=== PATIENT | male | born 1945 | race Caucasian/White ===

== ENCOUNTER → 2017-12-02 | Outpatient (CLI) | payer BC, MEDICARE ==
[~2017-12-02] MED LIST: ALBU90OI INH; BUME2 PO; DIAZ5 PO; LISI20 PO; METR500 PO; OXYACE5T PO; PROM25 PO; RXOXYACE PO; SULTRISS PO
== END | disposition home or self-care (01) ==
LOC: LAB SHORT 07:26 → PLD 07:26
DX: C44.612 Basal cell carcinoma of skin of right upper limb, including shoulder (principal); C44.611 Basal cell carcinoma of skin of unspecified upper limb, including shoulder
CPT/HCPCS: 88305

== ENCOUNTER 2019-04-26 11:24 | Observation (INO) | payer BC, MEDICARE ==
[~2019-04-26] VITALS: Ht 190.5 cm; Wt 94.2 kg
[~2019-04-26 11:24] MED LIST changes: -BUME2 PO; +Bumetanide1 MG PO
[2019-04-26] MEDS ORDERED: POTA10T PO (11:39)
[2019-04-26] MEDS ORDERED: BUDE6HFA INH (11:40)
[2019-04-26] MEDS ORDERED: TIOT18 INH (11:40)
[2019-04-26] MEDS ORDERED: LEVSOD25 PO (11:41)
[2019-04-26] MEDS ORDERED: Dyazide 37.5-21 EACH PO (11:41)
[2019-04-26] MEDS ORDERED: ALBU90OI INH (11:41)
[2019-04-26 12:12] LABS: BASOPHILS ABSOLUTE AUTO 0.04 K/mm3 (0.00-0.23); BASOPHILS PERCENT AUTO 0 % (0-2); EOSINOPHILS ABSOLUTE AUTO 0.17 K/mm3 (0.00-0.68); EOSINOPHILS PERCENT AUTO 2 % (0-6); Hematocrit 39.5 % (37.0-53.0); IMMATURE GRAN ABSOLUTE AUTO 0.03 K/mm3 (0.00-0.10); IMMATURE GRAN PERCENT AUTO 0 % (0-1); LYMPHOCYTES ABSOLUTE AUTO 0.86 K/mm3 (0.84-5.20); LYMPHOCYTES PERCENT AUTO 8 % (21-46); MONOCYTES PERCENT AUTO 6 % (4-13); Mean Corpuscular HGB 30.5 pg (26.0-34.0); Mean Corpuscular HGB Conc 30.4 g/dL (31.5-36.5); Mean Corpuscular Volume 100 fL (80-100); Mean Platelet Volume 10.8 fL (9.1-12.4); NEUTROPHILS PERCENT AUTO 84 % (41-73); Platelet Count 252 K/mm3 (150-400); RDW Coefficient Variation 12.7 % (11.7-14.2); RDW Standard Deviation 47.6 fL (35.1-46.3); Red Blood Cell Count 3.94 M/mm3 (4.30-5.90)
[2019-04-26 12:34] LABS: Alanine Aminotransfer (ALT/SGP 22 U/L (12-78); Albumin, Blood 3.3 g/dL (3.4-5.0); Albumin/Globulin Ratio 0.9 (0.8-1.8); Alk Phos 70 U/L (50-136); Anion Gap 0 mmol/L (6-16); Aspartate Aminotrans (AST/SGOT 19 U/L (12-37); Bilirubin, Total 0.4 mg/dL (0.1-1.0); Blood Urea Nitrogen 33 mg/dL (8-24); Bun/Creatinine Ratio 35.8 (12.0-20.0); CO2, Blood 43 mmol/L (21-32); Calcium, Blood 9.1 mg/dL (8.5-10.1); Chloride, Blood 100 mmol/L (98-108); Creatinine, Blood 0.92 mg/dL (0.60-1.20); Globulin, Blood 3.6 g/dL (2.2-4.0); Glomerular Filtration Rate >60 (60-); Glucose, Blood 134 mg/dL (70-99); Sodium, Blood 143 mmol/L (136-145); Total Protein, Blood 6.9 g/dL (6.4-8.2)
[2019-04-26] MEDS ORDERED: ASCO500 PO (13:30)
[2019-04-26] MEDS ORDERED: Vitamin D2000 UNIT PO (13:31)
[2019-04-26] MEDS ORDERED: OMEGA-3 KRILL1 EACH PO (13:31)
[2019-04-26] MEDS ORDERED: LATA.005SO RIGHTEYE (13:32)
[2019-04-26] MEDS ORDERED: VITAMIN D35000 UNIT PO (15:55)
[2019-04-26] MEDS ORDERED: MSM1000 MG PO (15:58)
--- NOTE | 2019-04-26 16:00 | NUR ---
PT ARRIVED TO ROOM 313 VIA W/C FROM ED WITH ACCOMPANYING. SETTLED IN TO BED AND ORIENTED TO ROOM. SNACK OFFERED WELL.
--- NOTE | 2019-04-26 19:47 | NUR ---
SHIFT SUMMARY PT INDEPENDENT INTO BATHROOM. O2 ON AT 2L/M. IN AND OUT OF ROOM. ABLE TO GIVE AN ACCURATE HX. REPORT GIVEN TO ONCOMING SHIFT.
[2019-04-27 05:02] LABS: BASOPHILS ABSOLUTE AUTO 0.05 K/mm3 (0.00-0.23); BASOPHILS PERCENT AUTO 1 % (0-2); EOSINOPHILS PERCENT AUTO 2 % (0-6); Hematocrit 36.2 % (37.0-53.0); IMMATURE GRAN ABSOLUTE AUTO 0.04 K/mm3 (0.00-0.10); IMMATURE GRAN PERCENT AUTO 0 % (0-1); LYMPHOCYTES PERCENT AUTO 11 % (21-46); MONOCYTES ABSOLUTE AUTO 0.84 K/mm3 (0.16-1.47); MONOCYTES PERCENT AUTO 8 % (4-13); Mean Corpuscular HGB 30.5 pg (26.0-34.0); Mean Corpuscular HGB Conc 30.4 g/dL (31.5-36.5); Mean Corpuscular Volume 100 fL (80-100); Mean Platelet Volume 10.6 fL (9.1-12.4); NEUTROPHILS ABSOLUTE AUTO 8.27 K/mm3 (1.96-9.15); NEUTROPHILS PERCENT AUTO 79 % (41-73); Platelet Count 232 K/mm3 (150-400); RDW Coefficient Variation 12.8 % (11.7-14.2); RDW Standard Deviation 47.2 fL (35.1-46.3); Red Blood Cell Count 3.61 M/mm3 (4.30-5.90)
[2019-04-27 05:36] LABS: Anion Gap 4 mmol/L (6-16); Blood Urea Nitrogen 35 mg/dL (8-24); Bun/Creatinine Ratio 31.8 (12.0-20.0); CO2, Blood 40 mmol/L (21-32); Calcium, Blood 9.1 mg/dL (8.5-10.1); Chloride, Blood 99 mmol/L (98-108); Glomerular Filtration Rate >60 (60-); Glucose, Blood 127 mg/dL (70-99); Sodium, Blood 143 mmol/L (136-145)
--- NOTE | 2019-04-27 06:36 | NUR ---
Shift summary: Pt alert and oriented. Slept off and on. Denies pain. Ambulated independently to commode without shortness of breath. Continent of urine. Dressing changed to right LE. Pt. tolerated well. No drainage from wound. VSS. No acute changes.
--- NOTE | 2019-04-27 14:12 | NUR ---
Upon receiving a referral for spiritual care, I visited patient. 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 Patient is pleasant and is at peace with but would prefer to not go quite yet. Patient tells me about his medical issues both past and present. I listen empathically and provide a calming presence and prayer. Patient responds well and voices appreciation for the visit. I will continue to remain available to patient and family.
--- NOTE | 2019-04-27 17:26 | NUR ---
SHIFT SUMMARY PT INDEPEDENT IN ROOM. RLE LESS SWOLLEN AND RED THAN YESTERDAY. DRESSING CHANGED WITH NO REDNESS NOTED AROUND THE WOUND SITE. KEPT LE ELEVATED. NO INCREASE IN RESP DISTRESS NOTED. AT BEDSIDE IN THE AFTERNOON.
--- NOTE | 2019-04-27 18:08 | NUR ---
TOOK OVER CARE FROM ARTHUR. PT SITTING UP IN BED, DENIES NEED FOR ANYTHING AT THIS TIME. NO APPARENT SIGNS OF DISTRESS. CALL LIGHT IS IN REACH.
[2019-04-28 04:34] LABS: BASOPHILS ABSOLUTE AUTO 0.06 K/mm3 (0.00-0.23); BASOPHILS PERCENT AUTO 1 % (0-2); EOSINOPHILS ABSOLUTE AUTO 0.18 K/mm3 (0.00-0.68); EOSINOPHILS PERCENT AUTO 2 % (0-6); Hematocrit 36.7 % (37.0-53.0); Hemoglobin 11.2 g/dL (13.5-17.5); IMMATURE GRAN ABSOLUTE AUTO 0.05 K/mm3 (0.00-0.10); IMMATURE GRAN PERCENT AUTO 1 % (0-1); LYMPHOCYTES ABSOLUTE AUTO 0.82 K/mm3 (0.84-5.20); LYMPHOCYTES PERCENT AUTO 8 % (21-46); MONOCYTES ABSOLUTE AUTO 0.77 K/mm3 (0.16-1.47); MONOCYTES PERCENT AUTO 8 % (4-13); Mean Corpuscular HGB 29.7 pg (26.0-34.0); Mean Corpuscular HGB Conc 30.5 g/dL (31.5-36.5); Mean Platelet Volume 10.4 fL (9.1-12.4); NEUTROPHILS ABSOLUTE AUTO 7.83 K/mm3 (1.96-9.15); NEUTROPHILS PERCENT AUTO 81 % (41-73); Platelet Count 246 K/mm3 (150-400); RDW Coefficient Variation 12.9 % (11.7-14.2); RDW Standard Deviation 46.3 fL (35.1-46.3); Red Blood Cell Count 3.77 M/mm3 (4.30-5.90); White Blood Cell Count 9.71 K/mm3 (4.00-11.30)
[2019-04-28 04:36] LABS: Mean Corpuscular Volume 97 fL (80-100)
--- NOTE | 2019-04-28 11:34 | NUR ---
PT EXPRESSING ANXIETY RE:DISCHARGE THIS PT HAS BEEN EXPRESSING ANXIETY REGARDING DISCHARGE SINCE I ARRIVED ON SHIFT. HE HAS ALSO EXPRESSED HIS CONCERNS TO PHYSICAL THERAPY AND OCCUPATIONAL THERAPY. HE DID REFUSE TO WORK WITH PHYSICAL THERAPY FOR FEAR HE WOULD "WEAR OUT", HE STATED TO ME. HE STATES HE IS FEARFUL HE CANNOT NAVIGATE HIS STAIRS AT HOME, OR GET INTO HIS CAR IF HIS DRIVES. HE EXPRESSED HE IS FEARFUL HE WILL GO HOME ONLY TO HAVE TO BE IMMEDIATELY RE-ADMITTED.
--- NOTE | 2019-04-28 16:04 | NUR ---
SHIFT SUMMARY PT WAS VISIBLY RELIEVED AND EXPRESSED GRATITUDE WHEN I TOLD HIM THE PLAN WAS FOR HIM TO DC TOMORROW W/HOME HEALTH. HE AGREED WITH THAT PLAN. IV ANTIBIOTICS ADMINISTERED ORDERED. HE DID REFUSE TO WORK WITH PT, BUT DID WORK WITH OT. NO OTHER CHANGES OR COMPLAINTS. FOOT DRESSING CHANGED TODAY.
--- NOTE | 2019-04-29 06:48 | NUR ---
sLEPT AT INTERVALS, TOLERATED MEDS AND IV ANTIBIOTICS ORDERED. NO COMPLAINTS OF PAIN BUT NOTED SWELLING OF RLE CONTINUES, WAS ENCOURAGED TO KEEP IT ELEVATED.
[2019-04-29] MEDS ORDERED: ACET325 PO (10:14)
[2019-04-29] MEDS ORDERED: Vsl#3 Capsule1 EACH PO (10:15)
[2019-04-29] MEDS ORDERED: Silvadene20 GM TOP (10:16)
[2019-04-29] MEDS ORDERED: CEPH500 PO (10:17)
--- NOTE | 2019-04-29 12:05 | NUR ---
DISCHARGE NOTE IV DC'D WNL. MEDICATIONS FAXED TO PREFERED PHARMACY. PT PROVIDED WITH HARDCOPY AND VERBAL INSTRUCTIONS FOR DC RE: DIAGNOSES, MEDICATIONS, FOLLOW UP APPOINTMENTS, HOME HEALTH. PT AND HAD NO FURTHER QUESTIONS. PT DRESSED IN PERSONAL CLOTHING, PERSONAL POSSESSIONS GATHERED. THE MECHANICAL ENGINEERING ADVISOR USED ONE OF OUR O2 TANKS TO GET THE PT TO HIS CAR, WHERE HIS OWN O2 TANK WAS STORED FOR TRANSPORT HOME. MECHANICAL ENGINEERING ADVISOR DID ASSIST THE PT OUT VIA WHEELCHAIR.
== END 2019-04-29 12:09 | disposition home health service (06) ==
LOC: ER 11:24 → MEDS 11:25 → ENPENDDIS 04-29 10:00 → MEDS 04-29 12:09
PROVIDERS: Emergency Medicine; ADMIT Internal Medicine
DX: L03.115 Cellulitis of right lower limb (principal); I11.0 Hypertensive heart disease with heart failure; I50.32 Chronic diastolic (congestive) heart failure; E11.9 Type 2 diabetes mellitus without complications; J44.9 Chronic obstructive pulmonary disease, unspecified; J96.11 Chronic respiratory failure with hypoxia; F41.9 Anxiety disorder, unspecified; E03.9 Hypothyroidism, unspecified; Z99.81 Dependence on supplemental oxygen; Z98.890 Other specified postprocedural states; Z88.8 Allergy status to other drugs, medicaments and biological substances; Z79.899 Other long term (current) drug therapy; Z79.51 Long term (current) use of inhaled steroids; Z87.891 Personal history of nicotine dependence
CPT/HCPCS: 36415; 80048; 80053; 85025; 90471; 90714; 93971; 94640; 94760; 96365; 96366; 96367; 96372; 96376; 97161; 97166; 97530; 97535; 99285-25; G0378; J0690; J1650; J3370; J7050

== ENCOUNTER → 2020-05-29 | Outpatient (CLI) | payer BC, MEDICARE ==
[~2020-05-29] MED LIST changes: +ACET325 PO; +ASCO500 PO; +BUDE6HFA INH; +CEPH500 PO; +Dyazide 37.5-21 EACH PO; +LATA.005SO RIGHTEYE; +LEVSOD25 PO; +MSM1000 MG PO; +OMEGA-3 KRILL1 EACH PO; +POTA10T PO; +Silvadene20 GM TOP; +TIOT18 INH; +VITAMIN D35000 UNIT PO; +Vitamin D2000 UNIT PO; +Vsl#3 Capsule1 EACH PO
== END | disposition home or self-care (01) ==
LOC: LAB SHORT 14:44 → PLD 14:44
DX: D23.39 Other benign neoplasm of skin of other parts of face (principal); L57.0 Actinic keratosis; B37.2 Candidiasis of skin and nail; L72.0 Epidermal cyst
CPT/HCPCS: 88304; 88305; 88312

== ENCOUNTER 2020-07-14 19:25 | Inpatient (IN) | payer OTHER, BC, MEDICARE ==
[~2020-07-14] VITALS: Ht 190.5 cm; Wt 87.5 kg
[~2020-07-14 19:25] MED LIST changes: -BUDE6HFA INH; -DIAZ5 PO; -Dyazide 37.5-21 EACH PO; -LATA.005SO RIGHTEYE; -LEVSOD25 PO
[2020-07-14 19:57] LABS: BASOPHILS ABSOLUTE AUTO 0.06 K/mm3 (0.00-0.23); BASOPHILS PERCENT AUTO 0 % (0-2); EOSINOPHILS ABSOLUTE AUTO 0.12 K/mm3 (0.00-0.68); EOSINOPHILS PERCENT AUTO 1 % (0-6); Hematocrit 40.7 % (37.0-53.0); Hemoglobin 11.8 g/dL (13.5-17.5); IMMATURE GRAN ABSOLUTE AUTO 0.19 K/mm3 (0.00-0.10); IMMATURE GRAN PERCENT AUTO 1 % (0-1); LYMPHOCYTES ABSOLUTE AUTO 1.34 K/mm3 (0.84-5.20); LYMPHOCYTES PERCENT AUTO 10 % (21-46); MONOCYTES PERCENT AUTO 4 % (4-13); Mean Corpuscular HGB 29.9 pg (26.0-34.0); Mean Corpuscular Volume 103 fL (80-100); Mean Platelet Volume 10.7 fL (9.1-12.4); NEUTROPHILS ABSOLUTE AUTO 11.44 K/mm3 (1.96-9.15); NEUTROPHILS PERCENT AUTO 83 % (41-73); Platelet Count 337 K/mm3 (150-400); RDW Coefficient Variation 12.7 % (11.7-14.2); RDW Standard Deviation 48.2 fL (35.1-46.3); Red Blood Cell Count 3.95 M/mm3 (4.30-5.90); White Blood Cell Count 13.75 K/mm3 (4.00-11.30)
[2020-07-14] MEDS ORDERED: SYMBICORT 160-4.6 GM INH (20:09)
[2020-07-14] MEDS ORDERED: LATA.005SO RIGHTEYE (20:10)
[2020-07-14] MEDS ORDERED: DIAZ5 PO (20:10)
[2020-07-14] MEDS ORDERED: LEVSOD25 PO (20:11)
[2020-07-14] MEDS ORDERED: ALBU90OI INH (20:11)
[2020-07-14] MEDS ORDERED: Dyazide 37.5-21 EACH PO (20:13)
[2020-07-14 20:14] LABS: International Normalized Ratio 1.13
[2020-07-14] MEDS ORDERED: INCRUSE ELLIPTA 62.5 INH (20:17)
[2020-07-14 20:35] LABS: PO2 Arterial 279 mmHg (80-100); pH Blood Arterial 7.41 (7.35-7.45)
[2020-07-14 20:36] LABS: PCO2 Arterial 70.8 mmHg (35-45)
[2020-07-14 20:52] LABS: Influenza A, PCR Negative (NEGATIVE); Influenza B, PCR Negative (NEGATIVE); Resp Syncytial Virus, PCR Negative (NEGATIVE); SARS-Cov-2 (COVID-19) PCR, MMC Negative (NEGATIVE)
[2020-07-14 21:17] LABS: Alanine Aminotransfer (ALT/SGP 28 U/L (12-78); Albumin, Blood 3.6 g/dL (3.4-5.0); Albumin/Globulin Ratio 0.9 (0.8-1.8); Alk Phos 61 U/L (50-136); Anion Gap 8 mmol/L (6-16); Aspartate Aminotrans (AST/SGOT 27 U/L (12-37); Bilirubin, Total 0.4 mg/dL (0.1-1.0); Blood Urea Nitrogen 62 mg/dL (8-24); CO2, Blood 37 mmol/L (21-32); Calcium, Blood 9.2 mg/dL (8.5-10.1); Chloride, Blood 92 mmol/L (98-108); Creatinine, Blood 1.17 mg/dL (0.60-1.20); Globulin, Blood 3.9 g/dL (2.2-4.0); Glomerular Filtration Rate >60 (60-); Glucose, Blood 205 mg/dL (70-99); Potassium, Blood 5.2 mmol/L (3.5-5.5); Sodium, Blood 137 mmol/L (136-145); Total Protein, Blood 7.5 g/dL (6.4-8.2); Troponin I <0.015 ng/mL (0.000-0.040)
[2020-07-14 22:27] LABS: Base Excess Venous 24.4 mmol/L; PCO2 Venous 80.2 mmHg (38-42)
--- NOTE | 2020-07-15 | NUR ---
PT TO ICU ROOM 4 VIA KIM WITH ED RN AND RT @ 2135, PT INTUBATED AND SEDATED, SEE FLOWSHEET FOR PROPOFOL TITRATIONS. 8.0 ETT 26 @ THE TEETH, VENT SET TO AC 14/550/5/30%, MONITOR SHOWS TACHYCARDIA WIHT HR 100-120'S, BP STABLE, 3-4+ EDEMA NOTED TO BLE. SKIN IS VERY FRAGILE, SKIN TEAR NOTED TO R ELBOW, SEE PHOTOS IN PTS CHART. TEMP PROBE FOLE IN PLACE DRAINING CLEAR YELLOW URINE. OG IN PLACE, CLAMPED. DR MOORE TO ROOM, SEE NEW ORDERS FOR FENTANYL. TO PTS ROOM, REPORTS SHE NOTICED SWELLING TO PTS FEET EARLY IN THE AM OF 07/14, SPO2 AT THAT TIME WAS 90%, WHICH IS LOW FOR PT, PO BUMEX WAS ADMINISTERED AT THAT TIME. REPORTS PT HAD POOR APPETITE AND PO INTAKE WHICH IS UNUSUAL FOR PT, IN THE EVENING PT BECAME "LISTLESS" CHECKED SPO2 AND IT SHOWED 53%, EMS WAS CALLED AT THAT TIME. REPORTS PT WEARS 2L PER NC AT ALL TIMES AND IS TYPICALLY INDEPENDENT WITH ADL'S. STS PT DOES NOT HAVE AN ADVANCED DIRECTION AND IS UNSURE ABOUT POLST. PT SEES DR MCDOWELL FOR PULMONOLGY AND DR WELLS FOR PRIMARY CARE, STS PT HAD A RECENT ADMISSION TO [facility] R/T PTS BLE SWELLING, BUT STS PT WAS NOT DIAGNOSED WITH CHF AT THAT TIME. DISCUSSED PALLIATIVE CARE WITH SPOUSE AND IS INTERESTED IN SPEAKING WITH PALLIATIVE CARE TEAM TO LEARN MORE ABOUT ADVANCE CARE PLANNING AND HOME MANAGMENT OF CHRONIC ILLNESSNESS, PC CONSULT ORDERED.
[2020-07-15 02:16] LABS: BASOPHILS ABSOLUTE AUTO 0.02 K/mm3 (0.00-0.23); BASOPHILS PERCENT AUTO 0 % (0-2); EOSINOPHILS PERCENT AUTO 0 % (0-6); Hematocrit 38.5 % (37.0-53.0); Hemoglobin 11.3 g/dL (13.5-17.5); IMMATURE GRAN ABSOLUTE AUTO 0.05 K/mm3 (0.00-0.10); IMMATURE GRAN PERCENT AUTO 0 % (0-1); LYMPHOCYTES ABSOLUTE AUTO 0.31 K/mm3 (0.84-5.20); LYMPHOCYTES PERCENT AUTO 2 % (21-46); MONOCYTES ABSOLUTE AUTO 0.37 K/mm3 (0.16-1.47); MONOCYTES PERCENT AUTO 3 % (4-13); Mean Corpuscular HGB 29.7 pg (26.0-34.0); Mean Corpuscular HGB Conc 29.4 g/dL (31.5-36.5); Mean Corpuscular Volume 101 fL (80-100); Mean Platelet Volume 10.8 fL (9.1-12.4); NEUTROPHILS PERCENT AUTO 95 % (41-73); Platelet Count 289 K/mm3 (150-400); RDW Coefficient Variation 12.7 % (11.7-14.2); RDW Standard Deviation 47.5 fL (35.1-46.3); Red Blood Cell Count 3.81 M/mm3 (4.30-5.90); White Blood Cell Count 14.05 K/mm3 (4.00-11.30)
[2020-07-15 02:31] LABS: Anion Gap 8 mmol/L (6-16); Blood Urea Nitrogen 62 mg/dL (8-24); Bun/Creatinine Ratio 50.8 (12.0-20.0); CO2, Blood 44 mmol/L (21-32); Calcium, Blood 9.4 mg/dL (8.5-10.1); Chloride, Blood 90 mmol/L (98-108); Creatinine, Blood 1.22 mg/dL (0.60-1.20); Glomerular Filtration Rate >60 (60-); Glucose, Blood 191 mg/dL (70-99); Sodium, Blood 142 mmol/L (136-145)
--- NOTE | 2020-07-15 07:17 | NUR ---
SHIFT SUMMARY PT REMAINS INTUBATED AND SEDATED, VENT SET TO AC 14/550/5/30%, PROPOFOL INFUSING @ 40mcg/kg/min. PT GRIMACES WITH NURSING CARE AND WITHDRAWS FROM PAINFUL STIMULI BUT DOES NOT RESPOND TO VERBAL STIMULI. MONITOR SHOWS AFLUTTER VS AFIB, HR 90'S-110, BP STABLE. OG IN PLACE AND CLAMPED. CAMERON IN PLACE WITH GOOD URINE OUTPUT, APPROX 2L THIS SHIFT. REPORT GIVEN TO SAMANTHA SPRING.
--- NOTE | 2020-07-15 08:29 | NUR ---
PT INTUBATED AND SEDATED WITH PROPOFOL. PT WILL GRIMACE TO PAIN AND STIFFENS BODY WITH CARE OR REPOSITIONING. ECHO BEING DONE NOW. NO SIGN OF DISTRESS.
[2020-07-15] MEDS ORDERED: HYOS.125 PO (08:55)
[2020-07-15] MEDS ORDERED: MINO50 PO (08:57)
--- NOTE | 2020-07-15 11:39 | NUR ---
Echocardiogram completed.
--- NOTE | 2020-07-15 17:24 | NUR ---
Spiritual care note: Per admit trigger, I was tasked to provide pt/family with ACP information. No family present and pt on vent and sedated. I left Advanced Directive packet in room and advised RN that I will remain available.
--- NOTE | 2020-07-15 18:40 | NUR ---
SUMMARY PT INTUBATED AND LIGHTLY SEDATED WITH PROPOFOL. PT WILL REST WITH EYE'S CLOSED BUT OPENS THEM TO VOICE. NODS HEAD TO QUESTIONS. WILL MOVE ALL EXTREMITIES. CAME IN TO SEE PT FOR AWHILE TODAY. NO OTHER CHANGES THIS SHIFT.
--- NOTE | 2020-07-15 21:00 | NUR ---
ASSUMPTION OF CARE PT INTUBATED AND SEDATED, AROUSES TO VERBAL STIMULI, FOLLOWS SOME COMMANDS, VENT SET TO AC 14/550/5/25%. MONITOR SHOWS AFIB/AFLUTTER WITH HR 90'S-110, BP STABLE. EDEMA TO BLE IMPROVED. PROPOFOL INFUSING, SEE FLOWSHEET FOR TITRATIONS. OG IN PLACE, CLAMPED. CAMERON IN PLACE DRAINING CLEAR YELLOW URINE. PT VERY WEAK, JOHNSON, MILD TREMORS NOTED.
[2020-07-16 04:31] LABS: BASOPHILS ABSOLUTE AUTO 0.02 K/mm3 (0.00-0.23); BASOPHILS PERCENT AUTO 0 % (0-2); EOSINOPHILS ABSOLUTE AUTO 0.01 K/mm3 (0.00-0.68); EOSINOPHILS PERCENT AUTO 0 % (0-6); Hematocrit 28.3 % (37.0-53.0); Hemoglobin 8.7 g/dL (13.5-17.5); IMMATURE GRAN ABSOLUTE AUTO 0.06 K/mm3 (0.00-0.10); IMMATURE GRAN PERCENT AUTO 1 % (0-1); LYMPHOCYTES ABSOLUTE AUTO 0.82 K/mm3 (0.84-5.20); LYMPHOCYTES PERCENT AUTO 6 % (21-46); MONOCYTES ABSOLUTE AUTO 0.91 K/mm3 (0.16-1.47); MONOCYTES PERCENT AUTO 7 % (4-13); Mean Corpuscular HGB 29.4 pg (26.0-34.0); Mean Corpuscular HGB Conc 30.7 g/dL (31.5-36.5); NEUTROPHILS ABSOLUTE AUTO 11.27 K/mm3 (1.96-9.15); NEUTROPHILS PERCENT AUTO 86 % (41-73); Platelet Count 272 K/mm3 (150-400); RDW Coefficient Variation 13.7 % (11.7-14.2); RDW Standard Deviation 48.2 fL (35.1-46.3); Red Blood Cell Count 2.96 M/mm3 (4.30-5.90); White Blood Cell Count 13.09 K/mm3 (4.00-11.30)
[2020-07-16 04:48] LABS: Mean Corpuscular Volume 96 fL (80-100)
[2020-07-16 04:49] LABS: Bun/Creatinine Ratio 47.3 (12.0-20.0); Calcium, Blood 7.8 mg/dL (8.5-10.1); Creatinine, Blood 1.5 mg/dL (0.60-1.20); Magnesium, Blood 2.1 mg/dL (1.6-2.4); Phosphorus, Blood 1.9 mg/dL (2.5-4.9); Potassium, Blood 2.6 mmol/L (3.5-5.5)
[2020-07-16 05:55] LABS: pH Blood Arterial 7.62 (7.35-7.45)
[2020-07-16 06:01] LABS: BASOPHILS ABSOLUTE AUTO 0.04 K/mm3 (0.00-0.23); BASOPHILS PERCENT AUTO 0 % (0-2); EOSINOPHILS ABSOLUTE AUTO 0.02 K/mm3 (0.00-0.68); EOSINOPHILS PERCENT AUTO 0 % (0-6); Hematocrit 32.9 % (37.0-53.0); Hemoglobin 10.3 g/dL (13.5-17.5); IMMATURE GRAN ABSOLUTE AUTO 0.05 K/mm3 (0.00-0.10); IMMATURE GRAN PERCENT AUTO 0 % (0-1); LYMPHOCYTES ABSOLUTE AUTO 1.02 K/mm3 (0.84-5.20); LYMPHOCYTES PERCENT AUTO 7 % (21-46); MONOCYTES ABSOLUTE AUTO 0.96 K/mm3 (0.16-1.47); MONOCYTES PERCENT AUTO 6 % (4-13); Mean Corpuscular HGB 29.9 pg (26.0-34.0); Mean Corpuscular HGB Conc 31.3 g/dL (31.5-36.5); Mean Corpuscular Volume 95 fL (80-100); Mean Platelet Volume 10.5 fL (9.1-12.4); NEUTROPHILS ABSOLUTE AUTO 13.11 K/mm3 (1.96-9.15); NEUTROPHILS PERCENT AUTO 86 % (41-73); Platelet Count 277 K/mm3 (150-400); RDW Coefficient Variation 13.9 % (11.7-14.2); RDW Standard Deviation 48.4 fL (35.1-46.3); Red Blood Cell Count 3.45 M/mm3 (4.30-5.90)
[2020-07-16 06:14] LABS: Calcium, Blood 8.9 mg/dL (8.5-10.1); Creatinine, Blood 1.63 mg/dL (0.60-1.20); Potassium, Blood 2.9 mmol/L (3.5-5.5)
--- NOTE | 2020-07-16 07:31 | NUR ---
Receieved report from Catie SPRING. Patient awake in bed and is able to knod yes or no to questions and follows simple commands. He is intubated and lightly sedated. Patient has 8.0 ET and 26cm at lips with vent settings AC 14, TV 450, FiO2 30%, PEEP 5.0 and sats 94%. He has 18ga RLFA dressing intact and site WNL and is infusing NS TKO and Propofol 10 mcg/kg/min, he also has 20 ga RAC infusing potassium rider at 50ml/hr. He has OG in place and is currently clamped. Patient has 16Fr. temp tomas draing to gravity yellow urine and temp of 99.9. Patient MAEW but weak.
--- NOTE | 2020-07-16 07:35 | NUR ---
SHIFT SUMMARY NO ACUTE CHANGES THIS SHIFT, PT REMAINS INTUBATED AND SEDATED, TIDAL VOLUMES CHANGED THIS AM PER DR HUA FOLLOWING ABG pH RESULT OF 7.62, VENT SET TO 14/450/5/35%. PT FAILED SBT THIS AM R/T LOW TV, SEE RT ASSESSMENT. PT CONVERTED TO SINUS RHYTHYM WITH PAC'S THIS SHIFT. CAMERON IN PLACE WITH GOOD URINE OUTPUT. MORNING LABS SHOWED LOW POTASSIUM AND PHOSPHOROUS, RESULTS CALLED TO DR HUA, SEE NEW ORDERS. REPORT GIVEN TO GUALBERTO SPRING.
--- NOTE | 2020-07-16 09:30 | NUR ---
Patient awake and communicates with knods and hand jestures. No vent or gtt setting changes, sats 95%, HR 80's currently.Oral care done and gave patient a shave and warm wash cloth to face and hands. Placed new IV in LFA 18ga. Patient denies any pain currently and knods does not want ET out.
--- NOTE | 2020-07-16 11:30 | NUR ---
Dr Thompson by around 0930 and placed on spontaneous mode with PS 10 and tolerated for about an hour and then reduced to PS 8 and lasted until 1130 and then placed back on AC mode and wants to start back on Tube Feed. He remains awake and communicable. Increased sedation to 20 mcg/kg/min Propofol.
--- NOTE | 2020-07-16 13:50 | NUR ---
Patient resting comfortably. called and gave her update and she will be in by 1400. He remains on original settings of AC mode, and sats 94%. Propofol remaisn at 20 mcg/kg/min. Garcia intact and patent and has clear yellow urine adequate amounts and LE edema looks reduced from earlier.VSS, See EMR.
--- NOTE | 2020-07-16 15:30 | NUR ---
Patients in room at bedside. IV in LFA infiltrated and is weaping, IV was removed. Patient continues on 20 mcg/kg/min of Propofol and NS TKO in RLFA. VSS, See EMR. He still trys to mouth words and is unable to communicate one thing and between several people. Potassium 2.7 and will address with Dr Thompson.
--- NOTE | 2020-07-16 18:00 | NUR ---
Pulled peripheral IV's after placing PICC in GADIEL. Dr Thompson ordered 60 meq Potassium. Repositioned and cath care and oral care. remains at bedside. Patient had coughing fit and bagged for a couple minutes and restarted on vent after that. RT messed with vent, no secretions with suctioning. 1st bag of potassium started and all lines changed to PICC Line. Left arm infiltration site still weeping serous fluid. NS TKO, Propofol 20 mcg/kg/min. Gave tylenol for 101.5 temp and placed fan on patient and temp. 100.4.
--- NOTE | 2020-07-16 19:00 | NUR ---
ASSUMED CARE ASSUMED CARE OF PATIENT. REMAINS INTUBATED- AC 14, TV 450, PEEP 5, FIO2 30%. RR 20s. SEDATED WITH PROPOFOL @ 20MCG/KG/MIN. OPENS EYES SPONANEOUSLY. NODS HEAD YES/NO APPROPRIATELY. FOLLOWS SIMPLE COMMANDS. DENIES C/O PAIN OR DISCOMFORT. BILATERAL SOFT WRIST RESTRAINTS IN PLACE TO PROTECT TUBES/LINES. MONITOR SHOWS AFIB, RATE 80-100s. BP STABLE. TEMP 100.2F VIA CAMERON TEMP PROBE. OG WITH PIVOT 1.5 AT 20CC/HR (GOAL RATE IS 40CC/HR). 30CC H20 FLUSH Q4H. CAMERON PATENT AND DRAINING YELLOW URINE. L ARM EDEMA NOTED FROM IV INFILTRATE- WEEPING SANGUINOUS FLUID. SEE SHIFT ASSESSMENT FOR FULL ASSESSMENT.
--- NOTE | 2020-07-16 19:04 | NUR ---
Spiritual care note: Provided prayer at bedside per 's request. Bennie was awake and trying to communicate. He denied pain/fear. Encouraged rest for both. I will remain available.
[2020-07-17 05:23] LABS: Base Excess Venous 27.7 mmol/L; Bicarbonate Venous 49.3 mmol/L (24.0-30.0); PCO2 Venous 61.6 mmHg (38-42); PO2 Venous 44.8 mmHg (38-42); pH Blood Venous 7.52 (7.34-7.37)
[2020-07-17 05:29] LABS: BASOPHILS ABSOLUTE AUTO 0.02 K/mm3 (0.00-0.23); BASOPHILS PERCENT AUTO 0 % (0-2); EOSINOPHILS PERCENT AUTO 1 % (0-6); Hematocrit 31.8 % (37.0-53.0); Hemoglobin 9.7 g/dL (13.5-17.5); IMMATURE GRAN ABSOLUTE AUTO 0.08 K/mm3 (0.00-0.10); IMMATURE GRAN PERCENT AUTO 1 % (0-1); LYMPHOCYTES ABSOLUTE AUTO 0.88 K/mm3 (0.84-5.20); LYMPHOCYTES PERCENT AUTO 6 % (21-46); MONOCYTES PERCENT AUTO 5 % (4-13); Mean Corpuscular HGB 29.7 pg (26.0-34.0); Mean Corpuscular HGB Conc 30.5 g/dL (31.5-36.5); Mean Corpuscular Volume 97 fL (80-100); Mean Platelet Volume 10.7 fL (9.1-12.4); NEUTROPHILS PERCENT AUTO 88 % (41-73); Platelet Count 256 K/mm3 (150-400); RDW Standard Deviation 49.5 fL (35.1-46.3); Red Blood Cell Count 3.27 M/mm3 (4.30-5.90); White Blood Cell Count 14.18 K/mm3 (4.00-11.30)
[2020-07-17 06:00] LABS: Blood Urea Nitrogen 70 mg/dL (8-24); Bun/Creatinine Ratio 46.7 (12.0-20.0); Calcium, Blood 8.5 mg/dL (8.5-10.1); Chloride, Blood 93 mmol/L (98-108); Glomerular Filtration Rate 48 (60-); Glucose, Blood 228 mg/dL (70-99); Magnesium, Blood 2.5 mg/dL (1.6-2.4); Phosphorus, Blood 4.3 mg/dL (2.5-4.9); Potassium, Blood 2.9 mmol/L (3.5-5.5); Sodium, Blood 144 mmol/L (136-145)
[2020-07-17 06:17] LABS: Anion Gap Unable to Calculate mmol/L (6-16)
[2020-07-17 06:18] LABS: CO2, Blood >45 mmol/L (21-32)
--- NOTE | 2020-07-17 06:22 | NUR ---
SHIFT SUMMARY NO ACUTE CHANGES DURING NOC. REMAINS INTUBATED- AC 14, TV 450, PEEP 5, FIO2 30% T/O MOST OF NOC. SWITCHED TO SPONTANEOUS PS 8 AT APPROXIMATELY 0430 FOR SBT. PT NOW REMAINS ON PS AND IS TOLERATING WELL. PROPOFOL OFF AT 0405 AND RESTARTED AT 15MCG/KG/MIN AT 0545 D/T MILD ANXIETY AND RESTLESSNESS. CONTINUES TO FOLLOW SIMPLE COMMANDS AND NOD HEAD YES/NO APPROPRIATELY. ATTEMPTS TO MOUTH WORDS, POINT AT THINGS, AND WRITE ON PAPER WITHOUT SUCCESS. BILATERAL SOFT WRIST RESTRAINTS REMAIN IN PLACE. LUE CONTINUES TO WEEP. BP STABLE T/O NOC. AFIB/FLUTTER, RATE 70s-110s. TMAX 100.2F. OG WITH TUBE FEEDING PIVOT 1.5 AT GOAL RATE OF 40CC/HR. OG RESIDUAL 0-10CC. CAMERON PATENT AND DRAINING DARK YELLOWISH-GREEN URINE. GADIEL PICC PATENT. WILL REPORT TO ONCOMING RN WHEN AVAILABLE.
--- NOTE | 2020-07-17 07:15 | NUR ---
Received report in room from Elizabeth SPRING. Patient resting on right side. He is intubated and lightly sedated. He has 8.0 ET, 26 cm at lips with vent settings spon, PS 8, FiO2 30%, PEEP 5.0 and sats 95%. He awakens to verbal stimuli and knods yes and no to simple questions and is mouthing and use hands and are unable to figure out communication. We tried pen and paper and still to weak and poor fine motor, also tried picture board and he just holds it and does nothing else. He has OG in place with Pivot 1.5 at goal rate 40ml/hr and 30 ml water flushes q4. He has 16Fr temp tomas draining to gravity yellow urine and temp of 100.0. He has PICC Line to GADIEL dressing intact and site WNL's and is infusing Propofol 15 mcg/kg/min NS TKO and potassium rider 1 of 3. He moves UE and minimal LE's.
--- NOTE | 2020-07-17 09:30 | NUR ---
Patient resting and awakens easily. Repositioned. Potassium riders continue. VSS, See EMR. He remains on same spon. mode and sats >90%. No changes to gtt's.
[2020-07-17 10:50] LABS: PCO2 Arterial 65.1 mmHg (35-45); PO2 Arterial 60.6 mmHg (80-100); pH Blood Arterial 7.49 (7.35-7.45)
--- NOTE | 2020-07-17 11:19 | NUR ---
Patient extubated to 6L O2 via NC and reduced to his home O2 of 2L via NC in mouth with sats 98%. He is coughing up thick secretions that we are suctioning. Removed restraints at 1100 at extubation. Repositioned and elevated extremities. VSS, See EMR.
--- NOTE | 2020-07-17 13:30 | NUR ---
Patient unable to clear secretions after contiuous suctioning thick perez secretions. He was getting tired and after increasing FiO2 to 75% and Dr Thompson making adjustments she decided to re-intubate at 1300. We used etomidate 20 mg and replaced with 8.0 ET and 26 cm at lips with settings AC 14, TV 450, FiO2 100% and Peep 5.0 and sats 100%. Restarted Propofol at 20 mcg/kg/min and re-applied restraints bilateral soft wrists. Dr Thompson called and gave update. Restarted Pivot 1.5 at original order when stopped.
--- NOTE | 2020-07-17 15:30 | NUR ---
Have weened FiO2 down to 40% and patient remains upper 90%'s. arrived at 1400 and is at bedside. Potassium went up to 3.9 after todays riders. VSS, See EMR. He is resting better and is calmer with ET in place. CBG 187, no coverage needed.
--- NOTE | 2020-07-17 17:35 | NUR ---
remains at bedside. Had RT come and levage ET as secretions were too thick. Current vent settings AC 14, TV 450, FiO2 35%, PEEP 5.0 and sats 97%. He has 1700ml urine out and edmea mostly on left foot that is noticable. He has been rest with little disturbance other than just finished oral care. PICC Line intact and infusing Propofol at 20 mcg/kg/min, NS TKO. He awakens to verbal stimuli and still interactive to simple commands. TF at Pivot 1.5 at 40 ml/hr and 30 ml/q4.
--- NOTE | 2020-07-17 19:00 | NUR ---
ASSUMED CARE ASSUMED CARE OF PATIENT. INTUBATED- AC 14, TV 450, PEEP 5, FIO2 35%. SEDATED WITH PROPOFOL AT 20MCG/KG/MIN. OPENS EYES TO VERBAL STIMULI. FOLLOWS SIMPLE COMMANDS AND NODS HEAD YES/NO SLIGHTLY TO QUESTIONS. BILATERAL SOFT WRIST RESTRAINTS IN PLACE TO PROTECT TUBES AND LINES. MONITOR SHOWS AFIB, RATE 60S-70s. SBP 90s. TEMP 100.8F PER CAMERON TEMP PROBE. OG WITH PIVOT 1.5 AT GOAL RATE OF 40CC/HR. CAMERON PATENT AND DRAINING DARK YELLOW URINE. GADIEL PICC PATENT. SEE SHIFT ASSESSMENT FOR FULL ASSESSMENT.
--- NOTE | 2020-07-17 21:00 | NUR ---
HYPOTENSION DISCUSSED CONTINUED HYPOTENSION (SBP 80-90s AND MAP 50s-60s) WITH DR. HUA- NEW ORDER RECEIVED FOR LEVOPHED TO KEEP MAP >65.
[2020-07-18 05:19] LABS: PCO2 Arterial 58.9 mmHg (35-45); pH Blood Arterial 7.52 (7.35-7.45)
[2020-07-18 05:38] LABS: BASOPHILS ABSOLUTE AUTO 0.04 K/mm3 (0.00-0.23); BASOPHILS PERCENT AUTO 0 % (0-2); EOSINOPHILS ABSOLUTE AUTO 0.23 K/mm3 (0.00-0.68); EOSINOPHILS PERCENT AUTO 1 % (0-6); Hematocrit 31.7 % (37.0-53.0); Hemoglobin 9.5 g/dL (13.5-17.5); IMMATURE GRAN ABSOLUTE AUTO 0.09 K/mm3 (0.00-0.10); IMMATURE GRAN PERCENT AUTO 1 % (0-1); LYMPHOCYTES ABSOLUTE AUTO 0.66 K/mm3 (0.84-5.20); LYMPHOCYTES PERCENT AUTO 4 % (21-46); MONOCYTES PERCENT AUTO 4 % (4-13); Mean Corpuscular HGB 29.6 pg (26.0-34.0); Mean Corpuscular Volume 99 fL (80-100); Mean Platelet Volume 10.5 fL (9.1-12.4); NEUTROPHILS ABSOLUTE AUTO 14.47 K/mm3 (1.96-9.15); NEUTROPHILS PERCENT AUTO 89 % (41-73); Platelet Count 263 K/mm3 (150-400); RDW Coefficient Variation 13.9 % (11.7-14.2); RDW Standard Deviation 50.5 fL (35.1-46.3); Red Blood Cell Count 3.21 M/mm3 (4.30-5.90); White Blood Cell Count 16.19 K/mm3 (4.00-11.30)
[2020-07-18 05:58] LABS: Blood Urea Nitrogen 68 mg/dL (8-24); Bun/Creatinine Ratio 50.7 (12.0-20.0); Calcium, Blood 8.3 mg/dL (8.5-10.1); Chloride, Blood 100 mmol/L (98-108); Creatinine, Blood 1.34 mg/dL (0.60-1.20); Glomerular Filtration Rate 55 (60-); Glucose, Blood 277 mg/dL (70-99); Phosphorus, Blood 3.2 mg/dL (2.5-4.9); Sodium, Blood 149 mmol/L (136-145)
[2020-07-18 06:00] LABS: Anion Gap Unable to Calculate mmol/L (6-16); CO2, Blood >45 mmol/L (21-32)
--- NOTE | 2020-07-18 06:23 | NUR ---
SHIFT SUMMARY NO ACUTE CHANGES. REMAINS INTUBATED WITH SETTINGS AC 14, TV 450, PEEP 5, FIO2 35%. RR 14-20s. SEDATED WITH PROPOFOL BETWEEN 20-30MCG/KG/MIN- NOW INFUSING @ 30MCG/KG/MIN. OPENS EYES TO VERBAL STIMULI AND FOLLOWS SIMPLE COMMANDS. OCCASIONALLY NODS HEAD YES/NO TO QUESTIONS. BILATERAL SOFT WRIST RESTRAINTS REMAIN ON TO PTOTECT TUBES/LINES. MONITOR SHOWS AFIB, RATE 60-70s. OCCASIONALLY SHOWS WHAT LOOKS LIKE A WANDERING ATRIAL PACEMAKER. LEVOPHED STARTED AT APPROXIMATELY 2130- NOW AT 3MCG/MIN TO MAINTAIN MAP >65. OG WITH PIVOT 1.5 AT GOAL RATE OF 40CC/HR. OG RESIDUAL <10CC. CAMERON PATENT AND DRAINING DARK GREENISH-YELLOW URINE. GADIEL PICC LINE PATENT AND DRSG D/I. WILL REPORT TO ONCOMING RN WHEN AVAILABLE.
--- NOTE | 2020-07-18 07:02 | NUR ---
ASSUMED CARE: RECEIVED BEDSIDE REPORT FROM NOC RN. PT APPEARS TO BE RESTING PEACEFULLY WITH NO ACUTE DISTRESS NOTED. WILL CONTINUE TO MONIOTOR AND ASSESS FURTHER.
--- NOTE | 2020-07-18 18:32 | NUR ---
SHIFT SUMMARY: PT HAS REMAINED ON LEVOPHED T/O THE DAY DECREASED DOWN TO 2MCG/MIN AND DECREASED PROPOFOL DOWN TO 25 MCG/KG/MIN. BP HAS BEEN TOLLERATING AND PT IS MORE RESPONSIVE. THE SIGNIFICANT OTHER CAME IN AND STAIED WITH THE PT DURING VISITING HOURS [id number] PLAYING MUSIC FOR THE PT AND HOLDING HIS HAND. PT HAS BEEN ABLE TO ANSWER YES AND NO QUESTIONS WITH A SHAKE OR NODD OF THE HEAD. PT DENIES PAIN AND APPEARS TO REMAIN CALM WITH MUSIC PLAYING. WILL CONTINUE TO MONIOTOR AND REPORT TO ONCOMING RN.
--- NOTE | 2020-07-18 19:00 | NUR ---
ASSUMED CARE ASSUMED CARE OF PATIENT. REMAINS INTUBATED- AC 10, TV 450, PEEP 5, FIO2 40%. RR 18-20. SEDATED WITH PROPOFOL AT 25MCG/KG/MIN. OPENS EYES TO VERBAL STIMULI. MOVES ALL EXTREMITIES WEAKLY TO COMMAND. FOLLOWS SIMPLE DIRECTIONS AND IS ABLE TO NOD HEAD YES/NO APPROPRIATELY. BILATERAL SOFT WRIST RESTRAINTS IN PLACE TO PREVENT SELF-EXTUBATION. DENIES C/O PAIN. MONITOR SHOWS AFIB, RATE 70s. BP STABLE WITH LEVOPHED AT 2MCG/MIN. TEMP 100.6F PER CAMERON TEMP PROBE. OG WITH PIVOT 1.5 AT GOAL RATE OF 40CC/HR. 200CC H20 FLUSH Q4H. CAMERON PATENT AND DRAINING DARK YELLOW URINE. GADIEL PICC PATENT, DRSG D/I. SEE SHIFT ASSESSMENT FOR FULL ASSESSMENT.
[2020-07-19 05:36] LABS: BASOPHILS ABSOLUTE AUTO 0.06 K/mm3 (0.00-0.23); BASOPHILS PERCENT AUTO 0 % (0-2); EOSINOPHILS ABSOLUTE AUTO 0.45 K/mm3 (0.00-0.68); EOSINOPHILS PERCENT AUTO 3 % (0-6); Hematocrit 30.8 % (37.0-53.0); Hemoglobin 8.9 g/dL (13.5-17.5); IMMATURE GRAN ABSOLUTE AUTO 0.09 K/mm3 (0.00-0.10); IMMATURE GRAN PERCENT AUTO 1 % (0-1); LYMPHOCYTES ABSOLUTE AUTO 0.59 K/mm3 (0.84-5.20); LYMPHOCYTES PERCENT AUTO 3 % (21-46); MONOCYTES ABSOLUTE AUTO 0.92 K/mm3 (0.16-1.47); MONOCYTES PERCENT AUTO 5 % (4-13); Mean Corpuscular HGB 29.3 pg (26.0-34.0); Mean Corpuscular HGB Conc 28.9 g/dL (31.5-36.5); Mean Corpuscular Volume 101 fL (80-100); Mean Platelet Volume 11.2 fL (9.1-12.4); NEUTROPHILS ABSOLUTE AUTO 15.08 K/mm3 (1.96-9.15); NEUTROPHILS PERCENT AUTO 88 % (41-73); Platelet Count 272 K/mm3 (150-400); RDW Coefficient Variation 14.1 % (11.7-14.2); RDW Standard Deviation 52.3 fL (35.1-46.3); Red Blood Cell Count 3.04 M/mm3 (4.30-5.90); White Blood Cell Count 17.19 K/mm3 (4.00-11.30)
[2020-07-19 05:45] LABS: Blood Urea Nitrogen 63 mg/dL (8-24); Bun/Creatinine Ratio 48.8 (12.0-20.0); Calcium, Blood 8.3 mg/dL (8.5-10.1); Chloride, Blood 103 mmol/L (98-108); Creatinine, Blood 1.29 mg/dL (0.60-1.20); Glomerular Filtration Rate 57 (60-); Glucose, Blood 266 mg/dL (70-99); Magnesium, Blood 2.8 mg/dL (1.6-2.4); Phosphorus, Blood 2.8 mg/dL (2.5-4.9); Potassium, Blood 3.4 mmol/L (3.5-5.5); Sodium, Blood 149 mmol/L (136-145)
[2020-07-19 05:52] LABS: Anion Gap Unable to Calculate mmol/L (6-16)
[2020-07-19 05:54] LABS: CO2, Blood >45 mmol/L (21-32)
--- NOTE | 2020-07-19 06:00 | NUR ---
SHIFT SUMMARY NO ACUTE CHANGES. REMAINS INTUBATED WITH SETTINGS AC 10, TV 450, PEEP 5, FIO2 35%. RR 10-20s. SEDATED WITH PROPOFOL AT 25MCG/KG/MIN. OPENS EYES TO VERBAL STIMULI AND FOLLOWS SIMPLE COMMANDS. OCCASIONALLY NODS HEAD YES/NO TO QUESTIONS. BILATERAL SOFT WRIST RESTRAINTS REMAIN ON TO PTOTECT TUBES/LINES. LEVOPHED INFUSING BETWEEM 2-3MCG/MIN TO MAINTAIN MAP >65- NOW AT 2MCG/MIN. OG WITH PIVOT 1.5 AT GOAL RATE OF 40CC/HR. OG RESIDUAL <10CC. CAMERON PATENT AND DRAINING DARK GREENISH-YELLOW URINE. GADIEL PICC LINE PATENT AND DRSG D/I. WILL REPORT TO ONCOMING RN WHEN AVAILABLE. =
--- NOTE | 2020-07-19 07:11 | NUR ---
assumed care: RECEIVED BEDSIDE REPORT FROM NOC RN. PT APPEARS TO BE RESTING COMFORTABLY NOTED WITH EVEN AND UNLABORED PATIENT INITIATED BREATHS. HR IN THE 60'S AND PT SHAKING HIS HEAD TO DENY PAIN. SUCTION TUBING CHANGED. VENT SETTINGS NOTED AT A/C 10/450/5/35% PROPOFOL IS RUNNING AT 25MCG/KG/MIN WITH A DOSING WT OF 90KG. LEOPHED IS RUNNING AT 2 MCG/MIN AND BP IS NOTED TO BE 111/53 WITH A MAP OF 65. WILL KEEP DRIPS RUNNING AT CURRENT RATE. WILL CONTINUE TO MONITOR AND ASSESS FURTHER.
--- NOTE | 2020-07-19 09:00 | NUR ---
SPONTANIOUS: PROPOFOL PLACED ON STANDBY. DR MCDOWELL PLACED PT ON SPONTANIOUS SETTINGS WITH SOME PRESSURE SUPPORT. PT IS HAVING DIFFICULTY KEEPING HIS TIDAL VOLUMES UP ABOVE 300. PT IS EDUCATED ON THE ALARMS AND TO TAKE DEEP BREATHS. ENCOURAGED TO COUNT TO 5 WHEN BREATHING IN AND IF THAT IS TOO MUCH AT LEAST TO A COUNT OF 3. IT APPEARS TO HAVE HELPPED THE PT TAKE IN MUCH HIGHER TITAL VOLUMES UP INTO THE 500'S EVEN. WILL CONTINUE TO MONITOR
--- NOTE | 2020-07-19 10:19 | NUR ---
SEDATION RESTARTED, PT STILL ON SPONTANIOUS AT THIS TIME LONG HE CAN TOLLERATE.
--- NOTE | 2020-07-19 17:51 | NUR ---
LEVOPHED ON STANDBY AT THIS TIME. PROPOFOL IS AT 25 MCG/KG/MIN
--- NOTE | 2020-07-19 22:59 | NUR ---
CARE ASSUMED 1900 PT ON PROPOFOL 25 MCG/KG/MIN, LEVOPHED ON SB, AND TKO 10 ML/HR INFUSING VIA PICC TO LEFT UPPER ARM. PT INTUBATED AND SEDATED. VENT SETTINGS OF AC 10/450/5/30%, SPO2 > 90%. AFIB WITH PVC'S. LEVOPHED INCREASED TO 1 MCG/MIN TO MAINTAIN MAP > 65. PROPOFOL INCREASED TO 30 MCG/KG/MIN, PT NODS YES TO PAIN. PT ABLE TO FOLLOW COMMANDS, OPEN EYES TO VERBAL STIMULI, AND NODS YES/NO TO SIMPLE QUESTIONS. OG TUBE IN PLACE WITH CONTINUOUS PIVOT 1.5 IMMUNE TUBE, RESIDUAL OF 90 MLS, BOWEL TONES HYPOACTIVE. PT HAS FRAIL SKIN. CAMERON CATH IN PLACE. SEE SHIFT ASSESSMENT.
[2020-07-20 04:09] LABS: BASOPHILS ABSOLUTE AUTO 0.02 K/mm3 (0.00-0.23); BASOPHILS PERCENT AUTO 0 % (0-2); EOSINOPHILS PERCENT AUTO 0 % (0-6); Hematocrit 29.9 % (37.0-53.0); Hemoglobin 8.9 g/dL (13.5-17.5); IMMATURE GRAN ABSOLUTE AUTO 0.07 K/mm3 (0.00-0.10); IMMATURE GRAN PERCENT AUTO 1 % (0-1); LYMPHOCYTES ABSOLUTE AUTO 0.31 K/mm3 (0.84-5.20); LYMPHOCYTES PERCENT AUTO 3 % (21-46); MONOCYTES ABSOLUTE AUTO 0.27 K/mm3 (0.16-1.47); MONOCYTES PERCENT AUTO 2 % (4-13); Mean Corpuscular HGB Conc 29.8 g/dL (31.5-36.5); Mean Corpuscular Volume 101 fL (80-100); Mean Platelet Volume 11.3 fL (9.1-12.4); NEUTROPHILS ABSOLUTE AUTO 11.91 K/mm3 (1.96-9.15); NEUTROPHILS PERCENT AUTO 95 % (41-73); Platelet Count 260 K/mm3 (150-400); RDW Coefficient Variation 13.7 % (11.7-14.2); RDW Standard Deviation 50.9 fL (35.1-46.3); Red Blood Cell Count 2.97 M/mm3 (4.30-5.90); White Blood Cell Count 12.58 K/mm3 (4.00-11.30)
[2020-07-20 04:28] LABS: Anion Gap 4 mmol/L (6-16); Blood Urea Nitrogen 65 mg/dL (8-24); Bun/Creatinine Ratio 53.3 (12.0-20.0); CO2, Blood 39 mmol/L (21-32); Calcium, Blood 8.8 mg/dL (8.5-10.1); Chloride, Blood 106 mmol/L (98-108); Creatinine, Blood 1.22 mg/dL (0.60-1.20); Glomerular Filtration Rate >60 (60-); Glucose, Blood 353 mg/dL (70-99); Magnesium, Blood 2.7 mg/dL (1.6-2.4); Phosphorus, Blood 2.6 mg/dL (2.5-4.9); Potassium, Blood 4.1 mmol/L (3.5-5.5); Sodium, Blood 149 mmol/L (136-145)
--- NOTE | 2020-07-20 04:48 | NUR ---
UPDATE PT APPEARS ANXIOUS, WIDE AWAKE, ATTEMPTING TO SPEAK. SHOWED EZ PICTURE BOARD TO COMMINUTE WITH LITTLE SUCCESS. ASKED PT IF HE WOULD LIKE TO SPEAK TO HIS AND HE NODS YES WITH TEARS IN HIS EYES. MADE PT AWARE OF THE CORPORATE COMPLIANCE MANAGER TIME AND WILL ATTEMPT TO CALL PTS IN THE MORNING TO SEE IF SHE CAN VISIT. VENT SETTINGS UNCHANGED. PTS LEVOPHED PLACED ON SB DUE TO MAP > 65. PROPOFOL AT 25 MCG/KG/MIN. PT DENIES PN AT THIS TIME. VSS. PT GIVEN 0.5 MG OF ATIVAN FOR ANXIETY WITH GOOD EFFECT.
[2020-07-20 05:54] LABS: PCO2 Arterial 52.8 mmHg (35-45); PO2 Arterial 63.1 mmHg (80-100); pH Blood Arterial 7.49 (7.35-7.45)
--- NOTE | 2020-07-20 07:10 | NUR ---
SHIFT SUMMARY PT CONTINUES TO BE A/O, FOLLOWING DIRECTIONS, AND ABLE TO NOD YES/NO. AC 10/450/5/30%, SPO2 > 90%. PT DID NOT PASS SBT THIS MORNING, PLACED ON PS 7/5, FIO2 30% AND PULLED LOW TIDAL VOLUMES. PT CONTINUES TO HAVE THICK DECKER SECRETION'S. PT REMAINS IN AFIB WITH OCCASIONAL PVC'S. LEVOPHED PLACED ON STANDBY, MAP > 65. DURING SEDATION VACATION PROPOFOL PLACED ON SB AND PT ABLE TO FOLLOW COMMANDS BUT APPEARS MORE ANXIOUS. PROPOFOL GTT 25 MCG/KG/MIN RESTARTED AFTER SEDATION VACATION, PT STILL ABLE TO WAKE UP AND FOLLOW DIRECTIONS. OG WITH PIVOT 1.5 AT GOAL OF 40 WITH 200 ML Q [address]ERON IN [address], TEMP 99.7'S. WILL REPORT TO ONCOMING SHIFT.
--- NOTE | 2020-07-20 08:50 | NUR ---
CARE ASSUMED REPORT RECEIVED, CARE ASSUMED FROM CLEMENTINE RODRIGUEZ AT 0700. UPON ASSUMING CARE, VITALS STABLE. LEVOPHED ON STANDBY. PT INTUBATED, SEDATED ON PROPOFOL. FOLLOWING COMMANDS BUT EXTREMELY WEAK. AFTER STIMULATION WITH REPOSITIONING, RESPIRATORY CARE TREATMENTS AND ORAL CARE, PT OPENS EYES SPONTANEOUSLY AND LOOKS AROUND. CONTINUES TO FOLLOW COMMANDS. SEE FULL SHIFT ASSESSMENT. DR. MCDOWELL TO BEDSIDE, REQUESTING SEDATION BE TURNED OFF AND TO NOTIFY HIM WHEN PT IS AWAKE ENOUGH TO TOLERATE PRESSURE SUPPORT VENT SETTINGS. PT CONTINUES TO BE IN BILATERAL WRIST RESTRAINTS FOR SAFETY.
--- NOTE | 2020-07-20 09:43 | NUR ---
SPONTANEOUS BREATHING TRIAL DR. MCDOWELL TO BEDSIDE TO PLACE PT ON SPONTANOUS PT FULLY AWAKE, FOLLOWING DIRECTIONS. VENT SETTINGS PRESSURE SUPPORT 10/5 FIO2 30%. PT PULLING TIDAL VOLUMES IN 400'S. EDUCATED TO TAKE THREE DEEP BREATHS IF VENT ALARMS AND HIM AND PT GIVES THUMBS UP. PT SAT UP HIGH TO WATCH TELEVISION, CHANNEL CHANGED PER PATIENT DIRECTIONS AND VOLUME TURNED UP SO PATIENT COULD HEAR. PT COMPLETELY OFF OF SEDATION AT THIS TIME.
--- NOTE | 2020-07-20 11:16 | NUR ---
UPDATE DR. MCDOWELL TO BEDSIDE FOR ASSESSMENT. ATTEMPTED TO REDUCE PRESSURES, PT REQUIRES 10/5 SO NO EXTUBATION TODAY BUT CONTINUE PT ON PRESSURE SUPPORT TOLERATED. PT EDUCATED AND AGREEABLE. AWAKE, WATCHING TELEVISION.
--- NOTE | 2020-07-20 17:29 | NUR ---
SUMMARY PT TOLERATED PRESSURE SUPPORT FOR APPROX 2 HOURS AT WHICH POINT HE BEGAN BREATHING IN THE 30'S-40'S AND REPORTED FEELING EXTREMELY SHORT OF BREATH. TIDAL VOLUMES ALSO DECREASED TO AVERAGE 200'S-300'S. PT PLACED BACK ON AC, PROPOFOL RESTARTED. SINCE THEN, PT HAS CONTINUED TO OPEN EYES SPONTANEOUSLY AND COMMUNICATE VIA WRITING ON PAPER AND ANSWERING YES/NO QUESTIONS. PT'S HAS BEEN AT BEDSIDE SINCE [address] MCDOWELL TO BEDSIDE TO DISCUSS PLAN OF CARE WITH PT AND PT'S . DR. MCDOWELL ALSO SPOKE WITH PT'S DAUGHTER WHO HAS MEDICAL POWER OF FINGER WAVER. PER DR. MCDOWELL AND THE PLAN MADE WITH THE FAMILY, PLAN IS TO EXTUBATE TOMORROW. IF PT DOES WELL, CONTINUE WITH SUPPORTIVE MEASURES SUCH BIPAP. IF PT BEGINS STRUGGLING AGAIN, NO PLAN FOR REINTUBATION AND POSSIBLE TRANSITION TO COMFORT CARE AT THAT TIME. PATIENT AND FAMILY ALSO EXPRESS WISH FOR NO CHEST COMPRESSIONS IF PT'S HEART WERE TO STOP BETWEEN NOW AND THEN. PT'S CODE STATUS CHANGED TO LIMITED CODE PER DR. MCDOWELL ORDERS. PT'S TUBE FEEDING INCREASED TODAY, PT TOLERATING WELL. BLOOD SUGARS ELEVATED, LONG ACTING INSULIN ADDED BY DR. FRANCOIS TO PT'S REGIME. GOOD URINE OUTPUT FROM CAMER[facility] TODAY AFTER ADDITIONAL DOSE OF BUMEX. VITALS STABLE WITH EXCEPTION OF PREVIOUSLY DISCUSSED RESPIRATORY STATUS. LOW GRADE FEVER NOTED. PT CONTINUES TO BE RESTRAINED BILATERALLY FOR SAFETY, BUT USING CALL LIGHT APPROPRIATELY.
--- NOTE | 2020-07-20 22:02 | NUR ---
CARE ASSUMED 1900 PT INTUBATED AND SEDATED. PROPOFOL AT 35 MCG/KG/MIN, INFUSING VIA PICC TO GADIEL. VENT SETTING OF AC 10/450/5/30%, SPO2 > 90%. PT REMAINS IN AFIB WITH OCCASIONAL PVC'S. ABLE TO FOLLOW COMMANDS BUT APPEARS DROWSY. PROPOFOL DECREASED TO 30 MCG/KG/MIN. MAP > 65. VSS. SWB IN PLACE. OG TUBE WITH PIVOT 1.5 AT GOAL OF 45. BOWEL TONES HYPOACTIVE. TEMP CAMERON IN PLACE WITH CLEAR YELLOW URINE IN BAG. WILL CONTINUE TO MONITOR.
--- NOTE | 2020-07-20 22:06 | NUR ---
REPORT OFF REPORT GIVEN TO CLEMENTINE GREEN. ALL REQUESTIONS ANSWERED AND UPDATED ON PT CODE STATUS.
--- NOTE | 2020-07-20 22:53 | NUR ---
ASSUMED CARE OF PT. PT ET TO VENT, AC 10, TV 450, 30% FIO2 AND PEEP 5. PT RESTING COMFORTABLY AT THIS TIME. PROPOFOL AT 30MCG/HR. TUBE FEEDING INFUSING AT 45. NO DISTRESS AT THIS TIME
[2020-07-21 04:06] LABS: BASOPHILS ABSOLUTE AUTO 0.02 K/mm3 (0.00-0.23); BASOPHILS PERCENT AUTO 0 % (0-2); EOSINOPHILS PERCENT AUTO 0 % (0-6); Hematocrit 31.7 % (37.0-53.0); Hemoglobin 9.2 g/dL (13.5-17.5); IMMATURE GRAN ABSOLUTE AUTO 0.11 K/mm3 (0.00-0.10); IMMATURE GRAN PERCENT AUTO 1 % (0-1); LYMPHOCYTES ABSOLUTE AUTO 0.32 K/mm3 (0.84-5.20); LYMPHOCYTES PERCENT AUTO 3 % (21-46); MONOCYTES ABSOLUTE AUTO 0.57 K/mm3 (0.16-1.47); MONOCYTES PERCENT AUTO 5 % (4-13); Mean Corpuscular HGB 29.3 pg (26.0-34.0); Mean Corpuscular Volume 101 fL (80-100); Mean Platelet Volume 11.5 fL (9.1-12.4); NEUTROPHILS ABSOLUTE AUTO 11.54 K/mm3 (1.96-9.15); NEUTROPHILS PERCENT AUTO 92 % (41-73); Platelet Count 319 K/mm3 (150-400); RDW Coefficient Variation 13.7 % (11.7-14.2); Red Blood Cell Count 3.14 M/mm3 (4.30-5.90); White Blood Cell Count 12.56 K/mm3 (4.00-11.30)
[2020-07-21 04:24] LABS: Bun/Creatinine Ratio 60.3 (12.0-20.0); Calcium, Blood 8.9 mg/dL (8.5-10.1); Creatinine, Blood 1.36 mg/dL (0.60-1.20); Magnesium, Blood 2.8 mg/dL (1.6-2.4); Phosphorus, Blood 2.6 mg/dL (2.5-4.9); Potassium, Blood 4.1 mmol/L (3.5-5.5)
[2020-07-21 04:36] LABS: PCO2 Arterial 45.4 mmHg (35-45); PO2 Arterial 62.3 mmHg (80-100); pH Blood Arterial 7.54 (7.35-7.45)
--- NOTE | 2020-07-21 09:58 | NUR ---
PT INTIALLY ABLE TO RESPOND TO COMMANDS WITH KNOD OF HEAD AND SQUEEZING HANDS. PT PLACE ON PS-[address] MCDOWELL AND PT TUBE FEEDING ON HOLD WITH ANTICIPATION OF EXTUBATION THIS AM WHEN FAMILY ARRIVES AND PT STATUS ALLOWING. PROPOFOL GTT PAUSED AND PT IS ALERT AND FOLLOWING COMMANDS. VSS. PT MAKING GOOD URINE WITH DIURETIC ASSISTANCE.
--- NOTE | 2020-07-21 10:20 | NUR ---
PT HAS JUST ARRIVED IN ROOM AND GIVEN UPDATE OF AM ACTIVITY AND PT STATUS. PT REMAINS ALERT AND OFF PROPOFOL, IS ON PS -12 AT 30%, PEEP 5.
--- NOTE | 2020-07-21 13:50 | NUR ---
1335 PT EXTUBATED W/O INCIDENT OR PT DISTRESS. PLACE ON BIPAP 15/8 AT 40% AND WILL TITRATE. PT RR 24-28 AND WITH TV 600-700 RANGE. MINIMAL ORAL AND E.T. SX BEFORE EXTUBATION, BUT PT HAS VERY POOR AND WEAK COUGH EFFORT. IS APPROP TO QUESTIONS AND REQUESTS BUT ORIENTATION DIFF TO FULLY ASSESS. PT IN THE ROOM AND FAMILY AT WINDOW.
--- NOTE | 2020-07-21 14:39 | NUR ---
PURPLE DNR WRIST BAND ON L WRIST AND CONFIRMED WITH [place] SPRING. INSTRUCTED IN BAND AND REASON FOR IT.
--- NOTE | 2020-07-21 18:12 | NUR ---
late 1630 note... PT NOTED TO BE IN A-FIB AND HR STARTED 110-130 THEN INC TO 130-150 RANGE WITH BP ELEVATING. FIO2 TITRATED UP TO 50% AND STATS THAT HAVE BEEN IN MID 90 RANGE NOTED IN 88-91 RANGE EVEN WITH INC FIO2. PT SEEMS TO BE SLOW TO RESPOND AND QUESTIONS AND REQUESTS. 1700 CARDIZEM GTT IVT UP TO 10MCG, AND IVP 15 MG WHERE GIVEN. TV PER BIPAP NOTED TO BE 350-450+ BUT PT IS BREATHING ONLY SHALLOW VOLUMES CLINICILY AND SATS CONT TO REMAIN LOW. APPROX 1730 FIO2 INC TO 60% AND PT NOT RESPONDING TO NON-NOXIOUS STIMULI. 1750 PT 2 DAUGHTERS WITH WERE ASKED TO BE IN ROOM AND ORDERS NOTED FROM DR MCDOWELL AND STATUS REPORT CALLED TO HIM X2 IN LAST HOUR + AND IS EXPECTED IN TO SEE PT AGAIN.
--- NOTE | 2020-07-21 19:09 | NUR ---
DR MCDOWELL WAS IN TO SPEAK TO FAMILY AND PT CHANGED TO COMFORT CARE. MS IV GIVEN AND PT DISCONNECTED FROM IV GTTS AND BIPAP. AND 2 DAUGHTERS ARE IN THE ROOM AND PT SATS OF BIPAP ARE DECLINING. REPORT AND PT STATUS GIVEN TO PETER SPRING.
--- NOTE | 2020-07-21 19:26 | NUR ---
assumed pt care. pt on comfort measures DNR. BIPAP REMOVED PT GIVEN MORPHINE BY PREVIOUS RN FOR COMFORT. PT APPEARS COMFORTABLE. FAMILY AT BEDSIDE.
--- NOTE | 2020-07-21 19:51 | NUR ---
PT PRONOUNCED. TIME OF 1950. NO HEAERTBEAT, NO RESPIRATIONS, NO RESPONSE TO TACTILE STIMULI, NO PUPILARY RESPONSE. NOTIFED DR. MCDOWELL AND DR. CABRALES.
--- NOTE | 2020-07-21 20:18 | NUR ---
Spiritual care note: Called in to provide [employer] employee counselor and prayer to and 2 dtrs. Facilitated story-telling and expressions of gratitude. Family has selected [facility] for final arrangements.
== END 2020-07-21 19:36 | DRG 870 ==
LOC: ER 19:25 → ICUW 21:31 → ICUE 21:31
PROVIDERS: Emergency Medicine; Family Medicine; Internal Medicine Critical Care Medicine; ADMIT Family Medicine
PROC: 0BH18EZ Insertion of Endotracheal Airway into Trachea, Via Natural or Artificial Opening Endoscopic (ICD-10-PCS; principal; 2020-07-14)
PROC: 5A1945Z Respiratory Ventilation, 24-96 Consecutive Hours (ICD-10-PCS; 2020-07-14)
PROC: 02HV33Z Insertion of Infusion Device into Superior Vena Cava, Percutaneous Approach (ICD-10-PCS; 2020-07-16)
PROC: 3E043XZ Introduction of Vasopressor into Central Vein, Percutaneous Approach (ICD-10-PCS; 2020-07-16)
PROC: 5A1955Z Respiratory Ventilation, Greater than 96 Consecutive Hours (ICD-10-PCS; 2020-07-17)
PROC: 0BH18EZ Insertion of Endotracheal Airway into Trachea, Via Natural or Artificial Opening Endoscopic (ICD-10-PCS; 2020-07-17)
PROC: 5A09357 Assistance with Respiratory Ventilation, Less than 24 Consecutive Hours, Continuous Positive Airway Pressure (ICD-10-PCS; 2020-07-21)
DX: B37.7 Candidal sepsis (principal); J96.21 Acute and chronic respiratory failure with hypoxia; I50.33 Acute on chronic diastolic (congestive) heart failure; G92 Toxic encephalopathy; J44.0 Chronic obstructive pulmonary disease with (acute) lower respiratory infection; J44.1 Chronic obstructive pulmonary disease with (acute) exacerbation; R65.20 Severe sepsis without septic shock; B37.1 Pulmonary candidiasis; Z90.49 Acquired absence of other specified parts of digestive tract; E03.9 Hypothyroidism, unspecified; Z51.5 Encounter for palliative care; Z87.891 Personal history of nicotine dependence; Z20.828 Contact with and (suspected) exposure to other viral communicable diseases; Z99.81 Dependence on supplemental oxygen; I11.0 Hypertensive heart disease with heart failure; H40.9 Unspecified glaucoma; E11.9 Type 2 diabetes mellitus without complications; D63.8 Anemia in other chronic diseases classified elsewhere; E87.6 Hypokalemia; E83.51 Hypocalcemia; I95.9 Hypotension, unspecified; Z78.1 Physical restraint status
CPT/HCPCS: 0241U; 31500; 31720; 36415; 36569; 36600; 51702; 71045; 80048; 80053; 82330; 82533; 82550; 82803; 82947; 83605; 83735; 83880; 84100; 84132; 84145; 84484; 85025; 85610; 85730; 86141; 87040; 87070; 87205; 93005; 93010; 93306; 94002; 94003; 94640; 94660; 94667; 94668; 96365-59; 96375-59; 99291-25; 99292; A9270; A9270-GY; C1751; C1769; C9113; J0330; J1650; J1815; J2060; J2270; J2543; J2704; J2920; J3010; J3370; J3480; J7030; J7050; J7060